=== PATIENT | male | born 1975 | race Caucasian/White ===

== ENCOUNTER 2017-02-26 17:06 | Emergency (ER) | payer MEDICAID ==
[~2017-02-26] VITALS: Ht 172.7 cm; Wt 76.1 kg
[2017-02-26 17:08] VITALS: BP 145/87
[2017-02-26] MEDS ORDERED: ONDANSETRON 2MG/ML, 2ML ONE (17:28)
[2017-02-26] MEDS ORDERED: FAMOTIDINE 20 MG/2 ML ONE (17:29)
[2017-02-26] MEDS ORDERED: SODIUM CHLORIDE 0.9% 1,000ML IVBOLUS ONE (17:30)
[2017-02-26] MEDS ORDERED: ONDANSETRON 2MG/ML, 2ML IVPush ONE (17:30)
[2017-02-26] MEDS ORDERED: SODIUM CHLORIDE FLUSH 10ML SYR IVF ONE (17:30)
[2017-02-26] MEDS ORDERED: FAMOTIDINE 20 MG/2 ML IVP ONE (17:30)
[2017-02-26 17:38] LABS: HEMATOCRIT 49.7 % (39.2-51.8); HEMOGLOBIN 16.9 g/dL (13.7-18.0); WHITE BLOOD COUNT 7.7 x10^3/uL (3.4-10)
[2017-02-26 17:49] LABS: BLOOD UREA NITROGEN 12 mg/dL (7-18)
[2017-02-26 17:52] LABS: ASPARTATE AMINO TRANSFERASE 13 U/L (15-37)
[2017-02-26] MEDS ORDERED: HYDROmorphone 1 MG/ML, 1ML IV ONE (18:00)
[2017-02-26] MEDS ORDERED: HYDROmorphone 2 MG/ML, 1ML ONE ×2 (18:04→19:18)
[2017-02-26] MEDS ORDERED: HYDROmorphone 1 MG/ML, 1ML IM ONE (19:30)
== END 2017-02-26 19:30 | disposition home or self-care (01) ==
LOC: ED 19:03
DX: R10.13 Epigastric pain (principal); R11.0 Nausea
CPT/HCPCS: 36415; 80053; 83690; 85025; 85610; 96361; 96372; 96374; 96375; 99285; J1170; J2405; J7030; S0028